=== PATIENT | female | born 1990 | race Caucasian/White ===

== ENCOUNTER 2018-12-08 21:15 | Emergency (ER) | payer MEDICAID ==
[~2018-12-08] VITALS: Ht 167.6 cm; Wt 52.3 kg
[2018-12-08 21:24] VITALS: Ht 167.6 cm; Wt 52.3 kg
[2018-12-08 21:44] LABS: HCG URINE NEGATIVE (NEGATIVE)
[2018-12-08 21:46] LABS: APPEARANCE CLEAR (CLEAR); COLOR STRAW (YELLOW)
[2018-12-08 21:47] LABS: BILIRUBIN NEGATIVE (NEGATIVE); GLUCOSE NEGATIVE (NEGATIVE); KETONE NEGATIVE (NEGATIVE); NITRITE NEGATIVE (NEGATIVE); PROTEIN NEGATIVE (NEGATIVE); UROBILINOGEN NORMAL (NORMAL)
[2018-12-08 21:48] LABS: EPITHELIAL CELLS 0-5 /hpf (0-5); RED CELLS - URINE RARE /hpf (0-5); WHITE CELLS - URINE OCC /hpf (0-5)
[2018-12-08 21:49] LABS: BACTERIA FEW /hpf (NONE SEEN)
[2018-12-08] MEDS ORDERED: DOXEPIN (21:57)
[2018-12-08] MEDS ORDERED: BENZTROPINE MESY1 MG PO (21:58)
[2018-12-08] MEDS ORDERED: RISPERDAL1 MG PO (21:58)
[2018-12-08] MEDS ORDERED: MOBIC7.5 MG (21:58)
[2018-12-08] MEDS ORDERED: ZOLOFT100 MG PO (21:58)
[2018-12-08 21:59] LABS: UDS - AMPHET NEGATIVE QUAL (NEGATIVE); UDS - BARB NEGATIVE QUAL (NEGATIVE); UDS - BENZO NEGATIVE QUAL (NEGATIVE); UDS - COCAINE NEGATIVE QUAL (NEGATIVE); UDS - OPIATE NEGATIVE QUAL (NEGATIVE); UDS - PCP NEGATIVE QUAL (NEGATIVE); UDS - THC NEGATIVE QUAL (NEGATIVE)
[2018-12-08 22:23] LABS: BASOPHILS 0.5 % (0-2); EOSINOPHILS 1.2 % (0-7); HEMATOCRIT 37.7 % (36.0-48.0); HEMOGLOBIN 12.8 g/dL (12-16); IMMATURE GRANULOCYTES 0.2 % (0-5); LYMPHOCYTES 43.5 % (15-50); MCV 91.3 fL (80.0-100.0); MONOCYTES 5.2 % (2-11); NEUTROPHILS 49.4 % (40-80); PLATELET COUNT 221 10x3/uL (130-400); RBC 4.13 10x6/uL (4.00-5.40)
[2018-12-08 22:50] LABS: ALKALINE PHOSPHATASE 102 U/L (46-116); ALT (SGPT) 37 U/L (10-68); BILIRUBIN - TOTAL 0.17 mg/dL (0.2-1.3); CALC OSMOLALITY 276 mosm/kg (275-300); CALCIUM 8.9 mg/dL (8.5-10.1); CARBON DIOXIDE 29.2 mmol/L (21.0-32.0); CHLORIDE - SERUM 105 mmol/L (98-107); CREATININE - SERUM 0.9 mg/dL (0.6-1.3); GLUCOSE 101 mg/dL (74-106); POTASSIUM - SERUM 3.5 mmol/L (3.5-5.1); PROTEIN - SERUM 7.7 g/dL (6.4-8.2); SODIUM 138 mmol/L (136-145); UREA NITROGEN 16 mg/dL (7-18); eGFR NON AFRICAN AMERICAN 80 mL/min (90-120)
[2018-12-08 23:30] VITALS: BP 119/79
== END 2018-12-08 23:31 | disposition home or self-care (01) ==
LOC: D.ER 21:15
PROVIDERS: Family Medicine
DX: R44.0 Auditory hallucinations (principal); F22 Delusional disorders

== ENCOUNTER 2018-12-09 00:02 | Emergency (ER) | payer MEDICAID ==
[~2018-12-09 00:02] MED LIST: BENZTROPINE MESY1 MG PO; DOXEPIN; MOBIC7.5 MG; RISPERDAL1 MG PO; ZOLOFT100 MG PO
[2018-12-09 00:07] VITALS: BMI 19.7
[2018-12-09 00:38] VITALS: BP 127/64
== END 2018-12-09 00:39 | disposition home or self-care (01) ==
LOC: D.ER 00:02
DX: R45.851 Suicidal ideations (principal); R44.0 Auditory hallucinations; Z86.59 Personal history of other mental and behavioral disorders

== ENCOUNTER 2018-12-09 14:09 | Emergency (ER) | payer MEDICAID ==
[2018-12-09 14:27] VITALS: BP 124/84; BMI 17.8
[2018-12-09 15:08] LABS: BASOPHILS 0.6 % (0-2); EOSINOPHILS 0.8 % (0-7); HEMATOCRIT 38.3 % (36.0-48.0); HEMOGLOBIN 13.2 g/dL (12-16); IMMATURE GRANULOCYTES 0.2 % (0-5); LYMPHOCYTES 35.6 % (15-50); MCH 31.4 pg (26.0-34.0); MCHC 34.5 g/dL (31.0-37.0); MEAN PLATELET VOLUME 11.7 fL (7.4-10.4); MONOCYTES 7.5 % (2-11); NEUTROPHILS 55.3 % (40-80); PLATELET COUNT 217 10x3/uL (130-400); RBC 4.21 10x6/uL (4.00-5.40); RDW 12.2 % (11.5-14.5); WBC 5.2 10x3/uL (4.8-10.8)
[2018-12-09 15:29] LABS: ACETAMINOPHEN 4.9 ug/mL (10.0-30.0); ALBUMIN 4.2 g/dL (3.4-5.0); ALKALINE PHOSPHATASE 90 U/L (46-116); ALT (SGPT) 34 U/L (10-68); BILIRUBIN - TOTAL 0.37 mg/dL (0.2-1.3); CALC OSMOLALITY 279 mosm/kg (275-300); CALCIUM 9.2 mg/dL (8.5-10.1); CARBON DIOXIDE 26.1 mmol/L (21.0-32.0); CHLORIDE - SERUM 106 mmol/L (98-107); CREATININE - SERUM 0.7 mg/dL (0.6-1.3); GLUCOSE 94 mg/dL (74-106); MAGNESIUM - SERUM 1.8 mg/dL (1.8-2.4); POTASSIUM - SERUM 3.5 mmol/L (3.5-5.1); PROTEIN - SERUM 7.7 g/dL (6.4-8.2); SODIUM 141 mmol/L (136-145); eGFR NON AFRICAN AMERICAN > 90 mL/min (90-120)
[2018-12-09 15:33] LABS: UREA NITROGEN 10 mg/dL (7-18)
[2018-12-09 16:05] LABS: APPEARANCE CLEAR (CLEAR); COLOR YELLOW (YELLOW); GLUCOSE NEGATIVE (NEGATIVE); KETONE NEGATIVE (NEGATIVE); NITRITE NEGATIVE (NEGATIVE); PROTEIN NEGATIVE (NEGATIVE)
[2018-12-09 16:06] LABS: BILIRUBIN NEGATIVE (NEGATIVE); UROBILINOGEN NORMAL (NORMAL)
[2018-12-09 16:07] LABS: HCG URINE NEGATIVE (NEGATIVE)
--- NOTE | 2018-12-09 16:07 | NUR ---
DR. GABRIEL NOTIFIED AND 1:1 SITTER OBSERVATION ORDERED. SITTER AT BEDSIDE. NOTIFIED CHARGE NURSE AND ATTENDING IN REGARDS TO ASSESSMENT FINDINGS. RESOURCES GIVEN TO PATIENT AND SAFETY PLAN INITIATED.
[2018-12-09 16:17] LABS: UDS - AMPHET NEGATIVE QUAL (NEGATIVE); UDS - BARB NEGATIVE QUAL (NEGATIVE); UDS - BENZO NEGATIVE QUAL (NEGATIVE); UDS - COCAINE NEGATIVE QUAL (NEGATIVE); UDS - OPIATE NEGATIVE QUAL (NEGATIVE); UDS - PCP NEGATIVE QUAL (NEGATIVE); UDS - THC NEGATIVE QUAL (NEGATIVE)
== END 2018-12-09 20:40 ==
LOC: D.ER 14:09
PROVIDERS: Emergency Medicine
DX: R45.851 Suicidal ideations (principal); R44.0 Auditory hallucinations; Z86.59 Personal history of other mental and behavioral disorders